=== PATIENT | male | born 1990 | race Caucasian/White ===

== ENCOUNTER 2019-04-14 19:50 | Emergency (ER) | payer SELFPAY ==
[~2019-04-14] VITALS: Ht 182.9 cm; Wt 87.5 kg
[~2019-04-14 19:50] MED LIST: HUMULIN R100 U/1 M1 IV; METOPROLOL TART25 M1 PO
[2019-04-14 19:59] VITALS: Ht 182.9 cm; Wt 87.5 kg
[2019-04-14 20:47] LABS: BASOPHIL % 0.4 % (0-2); PLATELET COUNT 249 x10^3mcL (130-400); RED CELL DISTRIBUTION WIDTH 12.4 % (11.5-14.5)
[2019-04-14 21:01] LABS: CALCIUM 9.7 mg/dL (8.5-10.1); CARBON DIOXIDE 29.2 mmol/L (21-32); CHLORIDE SERUM 97 mmol/L (98-107); CREATININE SERUM 0.8 mg/dL (0.7-1.3); GFR1 > 60 mL/min; GLUCOSE SERUM 400 mg/dL (74-106); POTASSIUM SERUM 3.8 mmol/L (3.5-5.1); SODIUM SERUM 135 mmol/L (136-145)
[2019-04-14 21:05] LABS: ALBUMIN 3.9 g/dL (3.4-5.0); ALKALINE PHOSPHATASE 91 U/L (46-116); ALT/SGPT 28 U/L (16-63); AST/SGOT 5 U/L (15-37); BILIRUBIN TOTAL 0.55 mg/dL (0.20-1.00); TOTAL PROTEIN, SERUM 7.4 g/dL (6.4-8.2)
[2019-04-14 23:58] VITALS: BP 144/101
== END 2019-04-15 02:22 | disposition home or self-care (01) ==
LOC: ED 19:50
PROVIDERS: Emergency Medicine
DX: E11.10 Type 2 diabetes mellitus with ketoacidosis without coma (principal); I10 Essential (primary) hypertension
CPT/HCPCS: 82962; 85378; J1815; J3480; J7030; Q0092